=== PATIENT | female | born 1945 | race Hispanic/Latino ===

== ENCOUNTER 2020-09-09 08:03 | Day surgery (SDC) | payer OTHER ==
[2020-09-09] MEDS ORDERED: Ringers Lactate 1,000 ML IV ONE (08:39)
[2020-09-09] MEDS ORDERED: OFLOXACIN OPH 0.3%-5 ML BTL ONE (09:54)
[2020-09-09] MEDS ORDERED: LIDOCAINE 2% MPF 5 ML VIAL ONE (10:18)
[2020-09-09] MEDS ORDERED: propofoL 200 MG/20 ML VIAL IV ONE (10:18)
[2020-09-09] MEDS ORDERED: MIDAZOLAM HCL 2 MG/2 ML INJ ONE (10:18)
[2020-09-09] MEDS ORDERED: OXYMETAZOLINE HCL 0.05% 15ML NAS ONE (10:38)
[2020-09-09] MEDS: dexAMETHasone 10 MG/ML VIAL ONE ×2 (10:41→10:42)
[2020-09-09] MEDS ORDERED: GLYCOPYRROLATE 0.2 MG/ML SYR ONE (10:43)
[2020-09-09] MEDS ORDERED: KETOROLAC 30 MG/ML INJ ONE (10:43)
[2020-09-09 12:46] LABS: Absolute Lymphocytes (CBC) 1.3 K/uL (0.7-4.9); Basophils % 0.6 % (0-1.3); Hematocrit 36.5 % (36.0-45.0); Lymphocytes % 34.7 % (15.3-44.8); MPV 10.1 fL (7.6-11.3); RBC Red Blood Cell Count 4.17 M/uL (3.86-4.86)
[2020-09-09 12:57] LABS: Potassium 3.9 mmol/L (3.5-5.1)
[2020-09-09 13:20] VITALS: BP 131/53; TEMP 96.6; O2SAT 98
--- NOTE | 2020-09-09 16:29 | P.OP ---
Reference Archivist: None Pre-Op Diagnosis: Chronic nonsuppurative otitis media, Conductive hearing loss Procedure: Bilateral myringotomy and tympanostomy tube placement Anesthesia: Other (GA via LMA) Estimated blood loss: Nil Specimen: None Findings: Other (middle ear filled with granulation tissue) Complications: Other (Unable to clear middle ear) Implants: Other (Paparella Type II tympanostomy tubes) Indication: Patient with recurrent acute otitis media and persistent middle ear fluid in spite of good medical management. Details of Operation: The patient was brought to the operating room and placed under general anesthesia via inhalation mask. The left ear was visualized under the operating microscope. A speculum aided visualization. An existing Valdez tube was removed with alligators and thick mucoid fluid was aspirated from the middle ear space. The middle ear space appeared severely edematous and granulation tissue was noted. Small amount of tissue was removed but the middle ear was difficult to visualized due to the edema. A Paparella Type II tympanostomy tube was positioned across the incision using the alligator and pick. One milliliter of dexamethasone 10mg/ml was instilled through the tube into the middle ear and a cotton ball placed at the meatus. A similar procedure was performed on the right side. An existing Valdez tube was removed with alligators and thick mucoid fluid was aspirated from the middle ear space. The middle ear space appeared severely edematous and granulation tissue was noted. Small amount of tissue was removed but the middle ear was difficult to visualized due to the edema. A Paparella Type II tympanostomy tube was positioned across the incision using the alligator and pick. One milliliter of dexamethasone 10mg/ml was instilled through the tube into the middle ear and a cotton ball placed at the meatus. Disposition: The patient was then awakened from anesthesia and taken to the recovery room in stable condition. Based on findings, my hope for significant immediate improvement in hearing was guarded. In light of findings, I ordered CBC with Diff, CMP and C-ANCA to evaluate for other systemic causes for the findings and will consider referral to an otology subspecialist.
--- NOTE | 2020-09-10 14:03 | EKG ---
Test Date: 2020-09-08 Test Time: 16:13:37 Ivf Embryologist: CELE MEASUREMENT RESULTS: Intervals: Rate: 63 VA: 158 QRSD: 84 QT: 418 QTc: 427 [place]: P: 53 VA: 158 QRS: 68 T: 69 INTERPRETIVE STATEMENTS: Normal sinus rhythm Normal ECG No previous ECG available for comparison Electronically Signed On 09-10-20 13:58:56 RHIA by Floyd Colón
== END 2020-09-09 12:40 | disposition home or self-care (01) ==
LOC: OR 08:03
PROVIDERS: ATTEND Otolaryngology
PROC: 099570Z Drainage of Right Middle Ear with Drainage Device, Via Natural or Artificial Opening (ICD-10-PCS; 2020-09-09)
PROC: 099670Z Drainage of Left Middle Ear with Drainage Device, Via Natural or Artificial Opening (ICD-10-PCS; principal; 2020-09-09 09:30)
DX: H65.493 Other chronic nonsuppurative otitis media, bilateral (principal); H90.2 Conductive hearing loss, unspecified; H65.33 Chronic mucoid otitis media, bilateral; Z20.828 Contact with and (suspected) exposure to other viral communicable diseases; Z66 Do not resuscitate; I10 Essential (primary) hypertension; E03.9 Hypothyroidism, unspecified
CPT/HCPCS: 93005; 85025; 80048; 36415; 86021; 69436; U0002; J2704; J1100; J7120; J2250